=== PATIENT | female | born 1970 | race Caucasian/White ===

== ENCOUNTER 2016-06-29 17:08 | Emergency (ER) | payer BC, OTHER ==
[~2016-06-29] VITALS: Ht 162.6 cm; Wt 92.6 kg
[~2016-06-29 17:08] MED LIST: DIPH25CA65 PO
[2016-06-29 17:10] VITALS: TEMP 37.2; Ht 162.6 cm; Wt 92.6 kg
[2016-06-29] MEDS ORDERED: SODIUM CHLORIDE 0.9% 1000ML 1,000 ML IV STA (17:25)
[2016-06-29] MEDS ORDERED: OPTIRAY 320 IV PRN (17:30)
[2016-06-29 17:48] LABS: BASO % 0.4 %; BASO ABS # 0.05 K/uL (0-0.2); COMPLETE YES; EOS % 3.7 %; HEMATOCRIT 43.9 % (37-47); IG% 0.3 %; LYMPH % 25.6 %; LYMPH ABS # 3.07 K/uL (1.2-3.4); MEAN CELL VOLUME 90.3 fL (80-100); MEAN CORPUSCULAR HGB CONC 33.3 g/dl (32-36); MEAN PLATELET VOLUME 10.5 fL (7.4-10.4); MONO % 5.5 %; NEUT % 64.5 %; PLATELET COUNT 309 K/uL (130-400); RED BLOOD COUNT 4.86 M/uL (4.2-5.4); WHITE BLOOD COUNT 12.01 K/uL (4.8-10.8)
[2016-06-29 18:07] LABS: BUN/CREATININE RATIO 9.8 (10-20); CALCIUM 8.4 mg/dl (8.5-10.1); CREATININE 0.77 mg/dl (0.60-1.20); POTASSIUM 3.8 mmol/L (3.5-5.1)
--- NOTE | 2016-06-29 18:44 | DIAGNOSTIC IMAGING REPORT ---
CT FACIAL-MAXILLOFACIAL WITH CT DOSE: 637.97 mGy.cm CLINICAL HISTORY: Left cheek swelling TECHNIQUE: COMPARISON STUDY: None. FINDINGS: No thyroid masses are visualized. No salivary gland masses are visualized. No mucosal space masses are visualized. There is no evidence of airway compromise. There is no evidence of abscess. There are mildly prominent jugular digastric lymph nodes, likely reactive. There is mild left periorbital and premaxillary soft tissue swelling. There is left maxilla sinus mucosal thickening. There is a tiny left ethmoid sinus osteoma. There is an equivocal tiny left posterior maxillary molar dental apical abscess IMPRESSION: 1. Moderate mucosal thickening within the left maxillary sinus 2. Mild left-sided periorbital and premaxillary soft tissue edema 3. No evidence of post septal orbital abscess 4. No evidence of airway compromise Electronically signed by: Corky Carvalho M.D. 06/29/2016 6:43 PM Dictated Date/Time: 06/29/2016 6:37 PM
[2016-06-29] MEDS ORDERED: AMOXICILLIN/CLAVULANATE TAB 875 MG TAB PO ONE (20:00)
[2016-06-29] MEDS ORDERED: AMOX875T PO (20:06)
[2016-06-29] MEDS ORDERED: PRED50TA PO (20:06)
[2016-06-29 20:26] VITALS: BP 137/86; PULSE 74; O2SAT 97
--- NOTE | 2016-06-30 01:04 | EMERGENCY ROOM VISIT NOTE ---
History Report prepared by Khalif: Russ Langston Under the Supervision of: Dr. Joss Rodriguez D.O. First contact with patient: 17:16 Chief Complaint: FACIAL PAIN/INJURY Stated Complaint: PAIN AND SWELLING IN LEFT SIDE OF FACE History of Present Illness The patient is a 46 year old female who presents to the Emergency Room with complaints of worsening swelling and pressure in the left side of her face that began yesterday. The patient states that her symptoms initially started with a toothache in her left upper jaw. Today the patients left face began to swell and she now feels a "pressure" and "fullness" in her face. She notes the left side her face is extremely itchy. She only has pain in her face with palpation. She has no pain in her eye and no change in vision. The patient was given a prescription of amoxicillin on Tuesday, seven days prior to arrival for bronchitis. She denies headache, fevers, chest pain, shortness of breath, nausea , or vomiting. 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 A total of 10 systems reviewed and were otherwise negative. Past Medical & Surgical Medical Problems: (1) Anxiety (2) Bilateral tubal ligation (3) Depression Family History FH: cancer Hypertension Kidney disease Kidney stones Social History Smoking Status: Current Every Day Smoker Alcohol Use: occasionally Drug Use: none Marital Status: Housing Status: lives with family Occupation Status: employed Current/Historical Medications Scheduled Amoxicillin & Pot Clavulanate (Augmentin 875-125 mg), 875 MG PO BID Prednisone (Prednisone), 50 MG PO DAILY Venlafaxine Hcl (Venlafaxine Hcl Er), 150 MG PO QPM Allergies Coded Allergies: No Known Allergies (Unverified , 06/29/16) Physical Exam Vital Signs Date Time Temp Pulse Resp B/P Pulse Ox O2 Delivery O2 Flow Rate FiO2 06/29/16 20:26 74 18 137/86 97 06/29/16 19:02 70 20 133/78 97 Room Air 06/29/16 17:10 37.2 94 18 128/81 96 Room Air Physical Exam GENERAL: Sitting up in bed, alert, well appearing, well nourished, no distress, non-toxic EYE EXAM: normal conjunctiva, PERRL and EOM's grossly intact OROPHARYNX: Poor Dentition. no exudate, no erythema, lips, buccal mucosa, and tongue normal and mucous membranes are moist. There is minimal tenderness to the 4th tooth on the upper pallet from the counting from the back right. There is no appreciable abscess. The submandibular region is soft. EARS: TM clear bilaterally FACE: There is swelling along the left cheek bone and just distal to the left inferior lid. There is edema associate with swelling. NECK: supple, no nuchal rigidity, no adenopathy, non-tender LUNGS: Clear to auscultation. Normal chest wall mechanics HEART: no murmurs, S1 normal and S2 normal ABDOMEN: abdomen soft, non-tender, normo-active bowel sounds, no masses, no rebound or guarding. SKIN: no rashes and no bruising UPPER EXTREMITIES: upper extremities are grossly normal. LOWER EXTREMITIES: No pitting edema. NEURO EXAM: Normal sensorium Medical Decision & Procedures ER Provider Diagnostic Interpretation: Radiology results as stated below per my review and the radiologist's interpretation: CT FACIAL-MAXILLOFACIAL WITH CT DOSE: 637.97 mGy.cm CLINICAL HISTORY: Left cheek swelling TECHNIQUE: COMPARISON STUDY: None. FINDINGS: No thyroid masses are visualized. No salivary gland masses are visualized. No mucosal space masses are visualized. There is no evidence of airway compromise. There is no evidence of abscess. There are mildly prominent jugular digastric lymph nodes, likely reactive. There is mild left periorbital and premaxillary soft tissue swelling. There is left maxilla sinus mucosal thickening. There is a tiny left ethmoid sinus osteoma. There is an equivocal tiny left posterior maxillary molar dental apical abscess IMPRESSION: 1. Moderate mucosal thickening within the left maxillary sinus 2. Mild left-sided periorbital and premaxillary soft tissue edema 3. No evidence of post septal orbital abscess 4. No evidence of airway compromise Electronically signed by: Corky Carvalho M.D. 06/29/2016 6:43 PM Dictated Date/Time: 06/29/2016 6:37 PM Laboratory Results 06/29/16 17:40 Red Blood Count 4.86, Mean Corpuscular Volume 90.3, Mean Corpuscular Hemoglobin 30.0, Mean Corpuscular Hemoglobin Concent 33.3, Mean Platelet Volume 10.5, Neutrophils (%) (Auto) 64.5, Lymphocytes (%) (Auto) 25.6, Monocytes (%) (Auto) 5.5, Eosinophils (%) (Auto) 3.7, Basophils (%) (Auto) 0.4, Neutrophils # (Auto) 7.74, Lymphocytes # (Auto) 3.07, Monocytes # (Auto) 0.66, Eosinophils # (Auto) 0.45, Basophils # (Auto) 0.05 06/29/16 17:40 Test 06/29/16 17:40 White Blood Count 12.01 K/uL (4.8-10.8) Red Blood Count 4.86 M/uL (4.2-5.4) Hemoglobin 14.6 g/dL (12.0-16.0) Hematocrit 43.9 % (37-47) Mean Corpuscular Volume 90.3 fL (80-100) Mean Corpuscular Hemoglobin 30.0 pg (25-34) Mean Corpuscular Hemoglobin Concent 33.3 g/dl (32-36) Platelet Count 309 K/uL (130-400) Mean Platelet Volume 10.5 fL (7.4-10.4) Neutrophils (%) (Auto) 64.5 % Lymphocytes (%) (Auto) 25.6 % Monocytes (%) (Auto) 5.5 % Eosinophils (%) (Auto) 3.7 % Basophils (%) (Auto) 0.4 % Neutrophils # (Auto) 7.74 K/uL (1.4-6.5) Lymphocytes # (Auto) 3.07 K/uL (1.2-3.4) Monocytes # (Auto) 0.66 K/uL (0.11-0.59) Eosinophils # (Auto) 0.45 K/uL (0-0.5) Basophils # (Auto) 0.05 K/uL (0-0.2) RDW Standard Deviation 46.8 fL (36.4-46.3) RDW Coefficient of Variation 14.2 % (11.5-14.5) Immature Granulocyte % (Auto) 0.3 % Immature Granulocyte # (Auto) 0.04 K/uL (0.00-0.02) Anion Gap 8.0 mmol/L (3-11) Est Creatinine Clear Calc Drug Dose 102.9 ml/min Estimated GFR () 108.8 Estimated GFR (Non- 93.9 BUN/Creatinine Ratio 9.8 (10-20) Calcium Level 8.4 mg/dl (8.5-10.1) Laboratory results per my review. Medications Administered Medications (Trade) Dose Ordered Sig/Aileen Route Start Time Stop Time Status Last Admin Dose Admin Sodium Chloride (Nss 1000ml) 1,000 ml @ 999 mls/hr Q1H1M STAT IV 06/29/16 17:25 06/29/16 18:25 DC 06/29/16 17:48 999 MLS/HR Amoxicillin/ Clavulanate Potassium (Augmentin Tab) 875 mg ONE ONCE PO 06/29/16 20:00 06/29/16 20:02 DC 06/29/16 20:19 875 MG Diphenhydramine HCl (Benadryl Syrup) 25 mg NOW STAT PO 06/29/16 20:00 06/29/16 20:02 DC 06/29/16 20:19 25 MG Prednisone (PredniSONE TAB) 60 mg NOW STAT PO 06/29/16 20:06 06/29/16 20:07 DC 06/29/16 20:19 60 MG ED Course ED COURSE: Vital signs were reviewed and showed normal vitals. The patients medical record was reviewed The above diagnostic studies were performed and reviewed. ED treatments and interventions as stated above. 1717: The patient was evaluated in room A12. A complete history and physical examination was performed. 1725: Ordered Sodium Chloride 1000 mL @ 999 mL/hr IV. 1999: Ordered Benadryl 25 mg PO, Augmentin 875 mg PO. 2006: Ordered Prednisone 60 mg PO. 2008: Upon reevaluation, the patient is resting in bed.I discussed my findings with the patient and she understands and agrees with the treatment plan. Based on the patients age, coexisting illnesses, exam and lab findings the decision to treat as an outpatient was made. The patient remained stable while under my care. The patient appeared well at the time of discharge. Medical Decision Differential diagnosis includes etiologies such as cellulitis, abscess, MRSA infection, DVT, necrotizing fasciitis, dermatitis, drug eruption, as well as others were entertained. Patient is a 46-year-old female who presents the ER for itching and erythema of the left side of her face. Vitals are unremarkable. Afebrile. No pressured old dental abscess. CBC and BMP were unremarkable. CT of the face shows no septal cellulitis. No abscess. Based on exam there is erythema and edema which favors more of a allergic reaction versus edema from trauma/itching. I do favor this is more likely since the patient has been itching that side of her face and she has no dental pain at this time. CT shows no obvious infection. I did cover her with Augmentin, steroids and chest importance of taking Benadryl. Stressed the importance of following up with her primary care doctor in the next 1-2 days. Any fevers or worsening swelling around her eye or pain with movement of her eye, she should return to the ER immediately. Discussed with Pt concerning signs and symptoms to watch out for. Pt was instructed to follow up with their PCP and discussed with the patient their option to return to the ED at anytime for persistent or worsening symptoms. The appropriate anticipatory guidance and out-patient management, including indications for return to the emergency department, were explained at length to the patient and understood. Impression Primary Impression: Swelling of left side of face Additional Impression: Cellulitis Scribe Attestation The scribe's documentation has been prepared under my direction and personally reviewed by me in its entirety. I confirm that the note above accurately reflects all work, treatment, procedures, and medical decision making performed by me. Departure Information Dispostion Home / Self-Care Prescriptions Prednisone (Prednisone) 50 Mg Tab 50 MG PO DAILY for 4 Days, TAB Prov: Joss Rodriguez, DO 06/29/16 Amoxicillin & Pot Clavulanate (Augmentin 875-125 mg) 1 Tab Tab 875 MG PO BID for 10 Days, TAB Prov: Joss Rodriguez, DO 06/29/16 Referrals Supa Grider M.D. (PCP) Forms HOME CARE DOCUMENTATION FORM, IMPORTANT VISIT INFORMATION Patient Instructions My [facility] Additional Instructions Please follow up with your primary care doctor with in the next 24 hours. Any worsening of your symptoms, please return to the ED immediately. This includes fevers greater than 100.4, pain with movement of her eye, redness or increased swelling around her eye, change in vision, or any other concerning signs or symptoms from your standpoint. Please take antibiotics along with Benadryl 50 mg 3 times a day as needed for itching/swelling. Problem Qualifiers Additional Impression: Cellulitis Site of cellulitis: unspecified site Qualified Codes: L03.90 - Cellulitis, unspecified
[2016-06-30] MEDS ORDERED: ONDA4TAB10 SL (16:12)
[2016-11-24] MEDS ORDERED: DIPH25CA5 PO (15:00)
[2016-11-24] MEDS ORDERED: VENL150T33 PO (17:52)
== END 2016-06-29 20:28 | disposition home or self-care (01) ==
LOC: C.EDB 17:10 → C.EDA 20:28
DX: R60.0 Localized edema (principal); L03.90 Cellulitis, unspecified; F41.9 Anxiety disorder, unspecified; F32.9 Major depressive disorder, single episode, unspecified; F17.200 Nicotine dependence, unspecified, uncomplicated; Z98.51 Tubal ligation status; Z82.49 Family history of ischemic heart disease and other diseases of the circulatory system; Z84.1 Family history of disorders of kidney and ureter

== ENCOUNTER 2016-06-30 14:20 | Emergency (ER) | payer BC, OTHER ==
[~2016-06-30] VITALS: Ht 162.6 cm; Wt 92.4 kg
[~2016-06-30 14:20] MED LIST changes: +AMOX875T PO; +PRED50TA PO
[2016-06-30 14:22] VITALS: TEMP 36.6; Ht 162.6 cm; Wt 92.4 kg
[2016-06-30] MEDS ORDERED: ONDANSETRON 4MG OD TAB PO ONE (15:00)
[2016-06-30 15:54] VITALS: BP 104/56; PULSE 64; O2SAT 95
[2016-06-30] MEDS ORDERED: ONDA4TAB10 SL (16:12)
--- NOTE | 2016-06-30 16:12 | EMERGENCY ROOM VISIT NOTE ---
History First contact with patient: 14:32 Chief Complaint: VOMITING Stated Complaint: VOMITING, COLD SWEATS, HEADACHE-HERE YESTERDAY Nursing Triage Summary: States has vomiting, and began feeling bad after taking her medications History of Present Illness Patient is a 46-year-old white female who returns to the emergency department for evaluation of a headache, with associated vomiting 4 this afternoon. Patient was seen and evaluated here last evening for evaluation of left-sided facial redness and swelling. She had a thorough evaluation performed including laboratory studies and a CT scan. She received IV antibiotics and oral prednisone. It was unclear whether her symptoms were slightly related to a cellulitis versus an allergic reaction, and she was less covered for both. Patient had an oral dose of Augmentin and prednisone prior to leaving the hospital last evening without difficulty. Patient reports that she was at her pharmacy at 8 AM today to get her medications. She went home and ate a breakfast of cereal and toast, then took her pills including her oral Augmentin , steroid and a dose of Benadryl. She states that the Benadryl makes her sleepy , so afterwards she went upstairs to lay down, rested for a couple of hours. She woke up and shortly thereafter developed a mild generalized headache. She took some ibuprofen. Shortly thereafter, she developed cold sweats and vomited 4. Patient at the present time now notes a mild headache that she rates a 1/ 10. She still feels slightly nauseous, but has able to keep down some hot tea. She denies any associated abdominal pain. She called her PCP and has a follow -up appointment for Tuesday the . Her apparently called to the emergency department and they referred her back here for possible "dehydration. " The patient notes that the pain and swelling in her face had markedly decreased since yesterday. She occasionally gets some throbbing and tingling of her left cheek, but her pain is much improved. She notes some tearing from the left eye and notes that it was crusted over this morning, but denies any eye redness or pain with eye movement. She has not had any fevers. She is never used Augmentin but has tolerated amoxicillin before. She has taken prednisone without difficulty. Review of Systems Review of systems as per HPI. All other systems reviewed were negative. 10 systems reviewed. Past Medical/Surgical History Medical Problems: (1) Anxiety (2) Cellulitis (3) Depression (4) Swelling of left side of face Surgical Problems: (1) Bilateral tubal ligation Electronic medical records are reviewed and summarized as above/below. See Problem List. Family History FH: cancer Hypertension Kidney disease Kidney stones Social History Smoking Status: Current Every Day Smoker Alcohol Use: occasionally Drug Use: none Marital Status: Housing Status: lives with family Occupation Status: employed Current/Historical Medications Scheduled Amoxicillin & Pot Clavulanate (Augmentin 875-125 mg), 875 MG PO BID Prednisone (Prednisone), 50 MG PO DAILY Venlafaxine Hcl (Venlafaxine Hcl Er), 150 MG PO QPM Scheduled PRN Diphenhydramine Hcl (Benadryl), 25 MG PO Q6 PRN for ALLERGIC REACTION Ondasetron Odt (Zofran Odt), 4 MG SL Q6H PRN for Nausea or Vomiting Allergies Coded Allergies: No Known Allergies (Unverified , 06/29/16) Physical Exam Vital Signs Date Time Temp Pulse Resp B/P Pulse Ox O2 Delivery O2 Flow Rate FiO2 06/30/16 15:54 64 16 104/56 95 Room Air 06/30/16 14:22 36.6 66 20 132/85 99 Room Air Physical Exam CONSTITUTIONAL: Patient is a well-appearing 46-year-old white female who is awake and alert and in no acute distress. Her vital signs are stable. EYES: Pupils equal, round, reactive to light and accommodation. EOMs intact without nystagmus. Sclera are anicteric. No conjunctival injection noted. ENT: Tympanic membranes intact, with normal landmarks. External canals are clear. Oral and nasopharynx are clear. Mucous membranes are moist, no lesions , tongue and gums appear normal. No trismus. FACE: Very slight swelling noted in the left side of the face, particularly to the left eye. There is no significant erythema, induration or increased warmth. Area is nontender to palpation. NECK: Supple without lymphadenopathy. No thyromegaly. No meningeal signs. Full active range of motion without discomfort. CARDIOVASCULAR: Regular rate and rhythm, with normal S1 and S2, no murmur or gallop or rub is heard. No carotid bruits auscultated. No JVD. Peripheral pulses easily palpable. RESPIRATORY: Breath sounds equal and clear to auscultation without wheezes, rales, or rhonchi heard. Full and equal chest expansion without accessory muscle use or retractions. INTEGUMENTARY: No lesions or rash, normal skin turgor. LYMPH: No lymphadenopathy. Medical Decision & Procedures Medications Administered Medications (Trade) Dose Ordered Sig/Aileen Route Start Time Stop Time Status Last Admin Dose Admin Ondansetron HCl (Zofran Odt) 4 mg ONE ONCE PO 06/30/16 15:00 06/30/16 15:01 DC 06/30/16 14:54 4 MG Ondansetron HCl (ZOFRAN ODT 4MG Home Pack) 1 homepack UD ONCE PO 06/30/16 16:15 06/30/16 16:16 DC 06/30/16 16:24 1 HOMEPACK ED Course The patient was seen and assessed as above. Her old records were reviewed. Based on her description, and photographs that she has of herself from yesterday , the left-sided facial redness and swelling have markedly improved in the last 12-18 hours. She presents with an episode of vomiting that occurred a couple of hours after taking Benadryl, ibuprofen, prednisone and Augmentin. She remained slightly nauseous, but denies any abdominal pain. She was given oral Zofran in the emergency department and oral fluids. I did discuss starting an IV and giving her IV medications and rechecking some baseline lab work, but she would prefer to not be stuck again today as apparently they had some difficulty yesterday and she has significant bruising in her left antecubital space from her prior site. Clinically she is improving, and I suspect her vomiting may be related to the medications that she took today. She tolerated oral fluids in the emergency department and felt well on reassessment. It was advised that she take her prednisone first thing in the morning after she eats breakfast, then wait a few hours to take the antibiotic. She can use the Benadryl only as needed if she has any itching or residual swelling but she may not need it any longer. She was advised to follow-up with your family doctor for further care and evaluation as she has scheduled. She was discharged to home with her driving. Differential diagnoses include the failed outpatient management, gastritis, medication side effect, viral illness, among others. Medical Decision See ED course. Impression Primary Impression: Vomiting Departure Information Prescriptions Ondasetron Odt (ZOFRAN ODT) 4 Mg Tab 4 MG SL Q6H Y for Nausea or Vomiting, #20 TAB Prov: Roz Isabel PA 06/30/16 Referrals Supa Grider M.D. (PCP) Patient Instructions My [facility] Additional Instructions Zofran(odansetron) tablets 4mg: Take one and allow it to dissolve in your mouth every four to six hours as needed for nausea or vomiting. Try spacing out your prednisone and Augmentin, and always take with food on your stomach. Ibuprofen(Motrin, Advil) may be used for fever or pain. Use 600mg every six hours as needed. Take with food. Avoid using more than 2400mg in a 24 hour period. Do not use 2400mg per day for more than three consecutive days without physician direction. Prolonged inappropriate use can lead to stomach upset or ulcers. (AND/OR) Acetaminophen(Tylenol) may be used for fever or pain. Use 1000mg every six hours as needed. Avoid using more than 4000mg in a 24 hour period. Rest and drink plenty of fluids as tolerated. Slow sips of water or sports drinks are recommended instead of large amounts all at once. Continue current medications. Once your stomach is settled start with a clear liquid diet (jello, soup broth, etc.) and then advance as tolerated. You should avoid full, heavy meals for about 24 hrs from the time your symptoms resolved. Return to the ER for persistent vomiting, fevers, abdominal pain, chest pains, difficulty breathing, black or bloody stools, worsening of your condition, or as needed. Follow up with your primary physician on Tuesday as you have scheduled.
[2016-06-30] MEDS ORDERED: ONDANSETRON HOME PACK 4MG OD TAB PO ONE (16:15)
[2016-11-24] MEDS ORDERED: DIPH25CA5 PO (15:00)
[2016-11-24] MEDS ORDERED: VENL150T33 PO (17:52)
== END 2016-06-30 16:25 | disposition home or self-care (01) ==
LOC: C.EDB 14:21 → C.EDA 16:25
DX: R11.10 Vomiting, unspecified (principal); F41.9 Anxiety disorder, unspecified; F32.9 Major depressive disorder, single episode, unspecified; L03.211 Cellulitis of face; R60.0 Localized edema; F17.200 Nicotine dependence, unspecified, uncomplicated; Z98.51 Tubal ligation status; Z82.49 Family history of ischemic heart disease and other diseases of the circulatory system; Z84.1 Family history of disorders of kidney and ureter

== ENCOUNTER 2016-11-24 19:21 | Emergency (ER) | payer BC ==
[~2016-11-24] VITALS: Ht 162.6 cm; Wt 92.5 kg
[~2016-11-24 19:21] MED LIST changes: -AMOX875T PO; +BND25 PO; -DIPH25CA65 PO; +ONDA4TAB10 SL; -PRED50TA PO; +VENL150T33 PO
[2016-11-24 19:26] VITALS: TEMP 37.1; Ht 162.6 cm; Wt 92.5 kg
[2016-11-24] MEDS ORDERED: HYDR-5688 PO (20:04)
[2016-11-24] MEDS ORDERED: CYCL5TAB PO (20:04)
--- NOTE | 2016-11-24 20:05 | EMERGENCY ROOM VISIT NOTE ---
ED Visit Note First contact with patient: 19:47 CHIEF COMPLAINT: Low back pain HISTORY OF PRESENT ILLNESS: This 46-year-old female patient presents to the emergency department via private vehicle accompanied by boyfriend complaining of pain in the low back which began 1.5 weeks ago when lifting her daughter. The pain was gradual in onset, is now constant and worse with movement. The patient notes the pain as dull and a 8/10. The patient has taken tylenol, acetaminophen, flexeril, and prednisone without relief of the pain. The patient denies any loss of control of their bowel or bladder functions. There has been no leg numbness or weakness, and no change in sensation. No nausea or vomiting or abdominal pain. No chest pain or shortness of breath. REVIEW OF SYSTEMS: A review of systems was performed with positives and pertinent negatives listed in the history of present illness. All other systems were reviewed and are negative. ALLERGIES: None MEDICATIONS: As noted below PMH: Bronchitis. SOCIAL HISTORY: Patient lives locally with family. PHYSICAL EXAM: VITALS: Vitals are noted on the nurse's note and reviewed by myself. Vital signs stable. GENERAL: 46-year-old female, in no acute distress, nondiaphoretic, well- developed well-nourished. SKIN: The skin was without rashes, erythema, edema, or bruising. HEART: Regular rate and rhythm without murmurs gallops or rubs. LUNGS: Clear to auscultation bilaterally without wheezes, rales or rhonchi. ABDOMEN: Positive bowel sounds x 4. Normal tympanic percussion. Soft, nontender, without masses or organomegaly. Reynolds sign negative. MUSCULOSKELETAL: No muscle atrophy, erythema, or edema noted of the back. There is no tenderness over the lumbar spinous processes. There is there is tenderness over the paraspinous muscles of the lumbar spine. There is no tenderness over the thoracic spine or paraspinous muscles. There are minimal muscle spasms present. The patient is slow to move around with maximum tenderness with tenderness in the lumbar spine paraspinous musculature. Positive left straight leg raise test. NEURO: Patient was alert and oriented to person place and time. EMERGENCY DEPARTMENT COURSE: Patient was seen and evaluated as above. PDMP unremarkable. Exam consistent with that of a lumbar strain, a potential early disc herniation. No evidence of cauda equina syndrome or neurologic impairment. She appears stable for outpatient management and is to follow with orthopedic spine. She will be given a short prescription of [place] for pain. She was educated upon management. No Tylenol or acetaminophen with [place]. She was educated upon worrisome symptoms in which to return, had questions prior to discharge, and was discharged home in good condition. She denied chance of . She is to take the prednisone one 10 mg tablet every 8 hours until finished with her current course which is about 4 days' worth. The Flexeril will be for 5 mg tablets as her current prescription for 10 mg tablets she notes makes her very sleepy. In evaluation treatment of this patient the following differential diagnoses were entertained: Cauda equina syndrome, lumbar strain, AAA, pyelonephritis, UTI , renal calculi, among others. Problem List Medical Problems: (1) Anxiety Status: Chronic (2) Cellulitis Status: Resolved (3) Depression Status: Chronic (4) Swelling of left side of face Status: Resolved Surgical Problems: (1) Bilateral tubal ligation Status: Resolved Current/Historical Medications Scheduled Cyclobenzaprine Hcl (Flexeril), 5 MG PO TID Prednisone Tab (Prednisone), 10 MG PO UD Venlafaxine Hcl (Venlafaxine Hcl Er), 150 MG PO QPM Scheduled PRN Cyclobenzaprine Hcl (Flexeril), 10 MG PO TID PRN for Muscle Spasm/Pain Diphenhydramine Hcl (Benadryl), 25 MG PO Q6H PRN for ALLERGIC REACTION Hydrocodone/Acetaminophen 5MG/325MG ([place] 5MG/325MG), 1-2 TABLET PO Q6 PRN for Pain Ondasetron Odt (Zofran Odt), 4 MG SL Q6H PRN for Nausea or Vomiting Allergies Coded Allergies: No Known Allergies (Unverified , 06/29/16) Vital Signs Date Time Temp Pulse Resp B/P (MAP) Pulse Ox O2 Delivery O2 Flow Rate FiO2 11/24/16 20:10 91 18 126/82 94 11/24/16 19:26 37.1 88 18 117/77 97 Room Air Departure Information Impression Primary Impression: Strain of lumbar region Dispostion Home / Self-Care Condition GOOD Prescriptions Hydrocodone/Acetaminophen 5MG/325MG ([place] 5MG/325MG) Tab 1-2 TABLET PO Q6 Y for Pain, #15 TAB For Initial Treatment Prov: Bamat, Constantin W., PA-C 11/24/16 Cyclobenzaprine Hcl (FLEXERIL) 5 Mg Tab 5 MG PO TID for 5 Days, #15 TAB PRN Prov: Constantin Espinosa PA-C 11/24/16 Referrals Supa Grider M.D. (PCP) Aki Jeffery D.O. Patient Instructions My [facility] Additional Instructions You have been treated in the Emergency Department for Back Pain. You have been prescribed [place] to be used for pain control. This is a narcotic medication. You cannot drive or consume alcohol while on this medicine. This medicine should only be used for pain that cannot be controlled with over-the- counter pain medicines. Please do not take Tylenol or acetaminophen with this. You have been prescribed Flexeril (cyclobenzaprine) 1-2 tabs orally, three times per day. Do NOT exceed 30 mg (6 tabs) per day. Take your first dose at bedtime as it can make you drowsy. Always take all medications as prescribed. Because this may interact with your other medications. Please take only what you need. For pain control, you can use the following [id number] medicines: - Regular strength (325mg/tab) Tylenol (acetaminophen) 2 tabs every 4-6 hours as needed. Do not exceed 12 tablets in a 24 hour period. Avoid taking more than 3 grams (3000 mg) of Tylenol per day. This includes any other sources of acetaminophen you may take on a regular basis. - Regular strength (200 mg/tab) Advil (ibuprofen) 1-2 tabs every 4-6 hours as needed. Do not exceed a dose of 3200 mg per day. If this is an acute injury, ice can be applied to the area of pain for the first 3 days to help decrease pain and inflammation. After the first 3 days, a heating pad can be used over the area for continued soothing relief. You should schedule a follow-up appointment in 2-3 days with your Primary Care Provider for further evaluation and treatment of your back pain. Please also follow-up with a international trade specialist Dr. Jeffery. Return to the Emergency Department if your current symptoms worsen despite treatment course outlined above, or if you develop any of the following symptoms : intractable pain despite aforementioned treatment course, loss of control of your bowel or bladder, numbness or tingling in your groin, or development of a fever. Please return with any new/concerning symptoms.
[2016-11-24 20:10] VITALS: BP 126/82; PULSE 91; O2SAT 94
[2016-11-24] MEDS ORDERED: CYCL10TA6 PO (20:13)
[2016-11-24] MEDS ORDERED: ONDA4TAB10 SL (20:13)
[2016-11-24] MEDS ORDERED: PRED10TA PO (20:13)
== END 2016-11-24 20:10 | disposition home or self-care (01) ==
LOC: C.EDB 19:22 → C.EDD 20:10
DX: S39.012A Strain of muscle, fascia and tendon of lower back, initial encounter (principal); X50.0XXA Overexertion from strenuous movement or load, initial encounter; F41.9 Anxiety disorder, unspecified; F32.9 Major depressive disorder, single episode, unspecified; Z98.51 Tubal ligation status; Z79.899 Other long term (current) drug therapy